=== PATIENT | female | born 1970 | race African-American/Black ===

== ENCOUNTER 2017-11-13 01:55 | Emergency (ER) | payer MEDICAID ==
[2017-11-13 02:05] VITALS: RESP 16; TEMP 97.5
[2017-11-13] MEDS ORDERED: IPRATROPIUM/ALBUTEROL 3 ML DEYVIAL IH ONE (03:07)
[2017-11-13] MEDS ORDERED: ALBUTEROL INH PREPACK MDI TAKEHOME ONE (03:08)
--- NOTE | 2017-11-13 03:08 | EDPHY ---
H & P Stated Complaint: Cough for one week Time Seen by Provider: 11/13/17 02:07 HPI/ROS: HPI The patient presents brought in by ambulance from the [facility] station for concern for asthma exacerbation. The patient is complaining of a mild cough and wheezing. She says she has had asthma since she was a child. She does not have an inhaler currently and feels like she would benefit from 1. She says she has had mild wheezing. She has not had any fevers or chills. She has not had any shortness of breath. Paramedics report oxygen saturations were normal in route. REVIEW OF SYSTEMS Constitutional: No fever, no chills. Eyes: No discharge. ENT: No sore throat. Cardiovascular: No chest pain, no palpitations. Respiratory: See HPI Gastrointestinal: No abdominal pain, no vomiting. Genitourinary: No hematuria. Musculoskeletal: No back pain. Skin: No rashes. Neurological: No headache. PMHx: Some sort of thyroid problem, currently being followed at [facility] though not on any medications yet Soc Hx: Homeless PHYSICAL General Appearance: Alert, no distress Eyes: Pupils equal and round no pallor or injection ENT, Mouth: Mucous membranes moist Respiratory: There are no retractions, lungs are clear to auscultation Cardiovascular: Regular rate and rhythm Gastrointestinal: Abdomen is soft and non-tender, no masses, bowel sounds normal Neurological: A&O, moves all extremities Skin: Warm and dry, no rashes Musculoskeletal: Neck is supple non tender Extremities: symmetrical, full range of motion Psychiatric: Patient is oriented X 3, there is no agitation Source: Patient, EMS Exam Limitations: No limitations - Personal History LMP (Females 10-55): Unknown Current Tetanus/Diphtheria Vaccine: Yes Current Tetanus Diphtheria and Acellular Pertussis (TDAP): Yes - Medical/Surgical History Hx Asthma: Yes Hx Chronic Respiratory Disease: No Hx Diabetes: No Hx Cardiac Disease: No Hx Renal Disease: No Hx Cirrhosis: No Hx Alcoholism: No Hx HIV/AIDS: No Hx Splenectomy or Spleen Trauma: No Other PMH: asthma Constitutional: Initial Vital Signs Temperature (C) 36.4 C 11/13/17 02:04 Heart Rate 92 11/13/17 02:04 Respiratory Rate 16 11/13/17 02:04 Blood Pressure 129/82 H 11/13/17 02:04 O2 Sat (%) 98 11/13/17 02:04 O2 Delivery Mode Room Air Allergies/Adverse Reactions: No Known Allergies Allergy (Unverified 11/13/17 02:05) Home Medications: Medication Instructions Recorded NK [No Known Home Meds] 11/13/17 Medical Decision Making Differential Diagnosis: 47-year-old homeless female with history of asthma since childhood presents with cough and wheezing. On exam, her oxygen saturations are normal, she is breathing comfortably, her lungs sound clear. She may have a mild asthma exacerbation. However, I doubt any bronchitis, pneumonia, pulmonary embolism. In the emergency department, patient was given a DuoNeb and a take home albuterol. She will be discharged home. I have given her information for follow-up at [facility] if she wishes. - Data Points Medications Given: Discontinued Medications Albuterol Sulfate (Proventil Inh Prepack) 1 mdi TAKEHOME EDNOW ONE Stop: 11/13/17 03:09 Last Admin: 11/13/17 04:02 Dose: 1 mdi Albuterol/Ipratropium (Duoneb) 3 ml IH EDNOW ONE Stop: 11/13/17 03:08 Last Admin: 11/13/17 03:11 Dose: 3 ml Departure - Departure Disposition: Home, Routine, Self-Care Clinical Impression: Exacerbation of asthma Condition: Good Instructions: Albuterol (By breathing), Asthma (ED) Referrals: [facility],. [Clinic] - As per Instructions
[2017-11-13 04:14] VITALS: BP 136/84; PULSE 100; O2SAT 97
== END 2017-11-13 04:14 | disposition home or self-care (01) ==
DX: J45.901 Unspecified asthma with (acute) exacerbation (principal)